=== PATIENT | male | born 1960 | race Caucasian/White ===

== ENCOUNTER 2024-08-29 16:21 | Emergency (ER) | payer MEDICAID ==
[~2024-08-29] VITALS: Ht 177.8 cm; Wt 104.0 kg
[2024-08-29 16:49] VITALS: BP 133/66; PULSE 66; RESP 16; TEMP 96.8; O2SAT 96
[2024-08-29] MEDS ORDERED: ASPI-107 PO (17:16)
[2024-08-29] MEDS ORDERED: HYDR25TA5 PO (17:16)
[2024-08-29] MEDS ORDERED: LOSA100T58 PO (17:16)
== END 2024-08-29 17:33 | disposition home or self-care (01) ==
LOC: ER 16:22
DX: Z76.0 Encounter for issue of repeat prescription (principal); I10 Essential (primary) hypertension
CPT/HCPCS: 99281